=== PATIENT | male | born 1985 | race Two or more races ===

== ENCOUNTER 2020-01-25 00:02 | Emergency (ER) | payer OTHER ==
[~2020-01-25] VITALS: Ht 172.7 cm; Wt 77.1 kg
[2020-01-25 00:02] VITALS: BP 129/86
== END 2020-01-25 00:28 | disposition home or self-care (01) ==
LOC: ER 00:09
DX: G51.0 Bell's palsy (principal); J45.909 Unspecified asthma, uncomplicated